=== PATIENT | female | born 1995 | race Hispanic/Latino ===

== ENCOUNTER 2018-09-26 13:45 | Emergency (ER) | payer SELFPAY ==
[2018-09-26] MEDS ORDERED: ACETAMINOPHEN EXTRA STRENGTH 500 MG TABLET ONE (13:59)
[2018-09-26] MEDS ORDERED: CYCLOBENZAPRINE HCL 10 MG TABLET ONE (14:00)
== END 2018-09-26 15:21 | disposition home or self-care (01) ==
LOC: EDH 13:45
DX: G44.209 Tension-type headache, unspecified, not intractable (principal); R53.81 Other malaise

== ENCOUNTER 2022-08-20 15:56 | Emergency (ER) | payer OTHER ==
[~2022-08-20] VITALS: Ht 154.9 cm; Wt 49.9 kg
[2022-08-20 17:43] VITALS: BP 111/75
[2022-08-20] MEDS ORDERED: OCTYL 2-CYANOACRYLATE 1 EACH TP ONE (18:12)
[2022-08-20] MEDS ORDERED: CEPH500B PO (18:29)
[2022-08-20] MEDS ORDERED: TETANUS/DIPHTHERIA TOXOID [ADULT] 0.5 ML VIAL IM ONE (18:30)
== END 2022-08-20 18:48 | disposition home or self-care (01) ==
LOC: EDH 15:56
DX: S91.012A Laceration without foreign body, left ankle, initial encounter (principal); W18.39XA Other fall on same level, initial encounter; Y93.89 Activity, other specified; Y92.89 Other specified places as the place of occurrence of the external cause; Y99.8 Other external cause status
CPT/HCPCS: 12001; 73630; 90471; 90714